=== PATIENT | male | born 1965 | race Caucasian/White ===

== ENCOUNTER 2016-03-01 00:54 | Emergency (ER) | payer MEDICAID ==
[~2016-03-01 00:54] MED LIST: ALBU.5I NEB; ALBU6.7H INH; MOBI15TA PO; PRED20 PO; VENTAER INH
[2016-03-01 00:56] VITALS: BP 147/85; PULSE 108; RESP 20; TEMP 98; O2SAT 97
[2016-03-01] MEDS ORDERED: methylPREDNISolone SOD SUCC 125 MG/2 ML VIAL ONE (02:03)
[2016-03-01] MEDS ORDERED: RESP: ALBUTEROL 2.5 MG/IPRATROPIUM 0.5 MG NEB (PRN) ONE (02:17)
[2016-03-01] MEDS ORDERED: methylPREDNISolone SOD SUCC 125 MG/2 ML VIAL IV ONE (02:45)
[2016-03-01 02:53] LABS: AUTOMATED NEUTROPHIL # 5.4 TH/MM3 (1.8-7.7); BASOPHIL # 0.1 TH/MM3 (0-0.2); BASOPHIL % 0.8 % (0.0-2.0); EOSINOPHIL # 0.3 TH/MM3 (0-0.4); EOSINOPHIL % 3.5 % (0.0-4.0); HEMATOCRIT 40.4 % (39.0-51.0); HEMO FLAGS DIFF FINAL; LYMPH % 29.2 % (9.0-44.0); LYMPHOCYTE # 2.6 TH/MM3 (1.0-4.8); MEAN CELL VOLUME 82.3 FL (80.0-100.0); MEAN CORPUSCULAR HEMOGLOBIN 28.5 PG (27.0-34.0); MEAN CORPUSCULAR HGB CONC 34.6 % (32.0-36.0); MONO % 6.2 % (0.0-8.0); NEUT % 60.3 % (16.0-70.0); PLATELET COUNT 302 TH/MM3 (150-450); RED BLOOD COUNT 4.91 MIL/MM3 (4.50-5.90); RED CELL DISTRIBUTION WIDTH 13.1 % (11.6-17.2); WHITE BLOOD COUNT 8.9 TH/MM3 (4.0-11.0)
[2016-03-01 02:59] LABS: BICARBONATE 28.3 MEQ/L (21.0-32.0); POTASSIUM 3.8 MEQ/L (3.5-5.1)
[2016-03-01] MEDS ORDERED: RESP: ALBUTEROL 2.5 MG/IPRATROPIUM 0.5 MG NEB (SCH) NEB ONE (03:00)
--- NOTE | 2016-03-01 04:00 | PD ---
HPI Chief Complaint: COPD exacerbation Time Seen by Provider: 03:44 Travel History International Travel<30 days: No Contact w/Intl Traveler<30days: No History of Present Illness HPI Patient is a 50-year-old male who presents to emergency room with complaints of COPD exacerbation. Patient reports that he has history of COPD, reports that he does use up-year-old treatments as well as Pro Air puffer, reports that he ran out of these medications 3 days ago. Patient reports that he has been having increased wheezing today, reports a mild nonproductive cough. Reports that he was a past smoker, reports that he currently doesn't smoke. Patient with no fevers or chills. Patient with no chest pain or shortness of breath at this time. Patient requests treatment for COPD at this time and request discharge with albuterol nebulizers, as well as Pro Air puffer. Patient with no recent travels. PFSH Past Medical History COPD: Yes Respiratory: Yes (COPD) Immunizations Current: Yes Family History Family History: Negative Social History Alcohol Use: Yes (RARELY) Tobacco Use: No Substance Use: No Allergies-Medications (Allergen,Severity, Reaction): Coded Allergies: No Known Allergies (Unverified , 01/10/16) Reported Meds & Prescriptions Reported Meds & Active Scripts Active Prednisone 20 Mg Tab 40 Mg PO DAILY 5 Days Albuterol Neb (Albuterol Sulfate) 2.5 Mg/0.5 Ml Neb 2.5 Mg NEB Q6HR NEB PRN Note: The Albuterol Sulfate Inhalation Solution is concentrated and must be diluted. Read complete instructions carefully before using. Mobic (Meloxicam) 15 Mg Tab 15 Mg PO DAILY PRN Reported Ventolin Hfa 18 GM Inh (Albuterol Sulfate) 90 Mcg/Act Aer 2 Puff INH Q4H PRN Proventil Hfa 6.7 GM Inh (Albuterol Sulfate) 90 Mcg/Act Aer 2 Puff INH Q4HR PRN Review of Systems General / Constitutional: No: Fever Eyes: No: Visual changes HENT: No: Headaches Cardiovascular: No: Chest Pain or Discomfort, Palpitations, Irregular Rhythm Respiratory: Positive: Cough, Shortness of Breath, Wheezing Gastrointestinal: No: Abdominal Pain Genitourinary: No: Dysuria Musculoskeletal: No: Pain Skin: No Rash Neurologic: No: Weakness Psychiatric: No: Depression Endocrine: No: Polydipsia Hematologic/Lymphatic: No: Easy Bruising Physical Exam Narrative GENERAL: No acute distress, nontoxic SKIN: Warm and dry. HEAD: Atraumatic. Normocephalic. EYES: Pupils equal and round. No scleral icterus. No injection or drainage. ENT: No nasal bleeding or discharge. Mucous membranes pink and moist. NECK: Trachea midline. No JVD. CARDIOVASCULAR: Regular rate and rhythm. No murmur appreciated. RESPIRATORY: Patient with diffuse wheezing to upper and lower lungs, patient with no accessory muscle use with breathing. Breath sounds equal bilaterally. GASTROINTESTINAL: Abdomen soft, non-tender, nondistended. Hepatic and splenic margins not palpable. MUSCULOSKELETAL: No obvious deformities. No clubbing. No cyanosis. No edema. NEUROLOGICAL: Awake and alert. No obvious cranial nerve deficits. Motor grossly within normal limits. Normal speech. PSYCHIATRIC: Appropriate mood and affect; insight and judgment normal. Data Data Last Documented VS Vital Signs Date Time Temp Pulse Resp B/P Pulse Ox O2 Delivery O2 Flow Rate FiO2 03/01/16 00:56 98.0 108 20 147/85 97 Room Air Orders Methylprednisolone So Succ Inj (Solumedr (03/01/16 02:03) Albuterol-Ipratropium Neb (Duoneb Neb) (03/01/16 02:17) Basic Metabolic Panel (Bmp) (03/01/16 01:30) Complete Blood Count With Diff (03/01/16 01:30) Methylprednisolone So Succ Inj (Solumedr (03/01/16 02:45) Albuterol-Ipratropium Neb (Duoneb Neb) (03/01/16 03:00) Chest, Single Ap (03/01/16 ) Labs Laboratory Tests Test 03/01/16 01:30 White Blood Count 8.9 TH/MM3 Red Blood Count 4.91 MIL/MM3 Hemoglobin 14.0 GM/DL Hematocrit 40.4 % Mean Corpuscular Volume 82.3 FL Mean Corpuscular Hemoglobin 28.5 PG Mean Corpuscular Hemoglobin 34.6 % Concent Red Cell Distribution Width 13.1 % Platelet Count 302 TH/MM3 Mean Platelet Volume 8.8 FL Neutrophils (%) (Auto) 60.3 % Lymphocytes (%) (Auto) 29.2 % Monocytes (%) (Auto) 6.2 % Eosinophils (%) (Auto) 3.5 % Basophils (%) (Auto) 0.8 % Neutrophils # (Auto) 5.4 TH/MM3 Lymphocytes # (Auto) 2.6 TH/MM3 Monocytes # (Auto) 0.6 TH/MM3 Eosinophils # (Auto) 0.3 TH/MM3 Basophils # (Auto) 0.1 TH/MM3 CBC Comment DIFF FINAL Differential Comment Sodium Level 142 MEQ/L Potassium Level 3.8 MEQ/L Chloride Level 105 MEQ/L Carbon Dioxide Level 28.3 MEQ/L Anion Gap 9 MEQ/L Blood Urea Nitrogen 14 MG/DL Creatinine 0.91 MG/DL Estimat Glomerular Filtration 89 ML/MIN Rate Random Glucose 105 MG/DL Calcium Level 8.6 MG/DL MDM Medical Decision Making Medical Screen Exam Complete: Yes Emergency Medical Condition: Yes Interpretation(s) Vital Signs Date Time Temp Pulse Resp B/P Pulse Ox O2 Delivery O2 Flow Rate FiO2 03/01/16 00:56 98.0 108 20 147/85 97 Room Air Laboratory Tests Test 03/01/16 01:30 White Blood Count 8.9 TH/MM3 (4.0-11.0) Red Blood Count 4.91 MIL/MM3 (4.50-5.90) Hemoglobin 14.0 GM/DL (13.0-17.0) Hematocrit 40.4 % (39.0-51.0) Mean Corpuscular Volume 82.3 FL (80.0-100.0) Mean Corpuscular Hemoglobin 28.5 PG (27.0-34.0) Mean Corpuscular Hemoglobin 34.6 % Concent (32.0-36.0) Red Cell Distribution Width 13.1 % (11.6-17.2) Platelet Count 302 TH/MM3 (150-450) Mean Platelet Volume 8.8 FL (7.0-11.0) Neutrophils (%) (Auto) 60.3 % (16.0-70.0) Lymphocytes (%) (Auto) 29.2 % (9.0-44.0) Monocytes (%) (Auto) 6.2 % (0.0-8.0) Eosinophils (%) (Auto) 3.5 % (0.0-4.0) Basophils (%) (Auto) 0.8 % (0.0-2.0) Neutrophils # (Auto) 5.4 TH/MM3 (1.8-7.7) Lymphocytes # (Auto) 2.6 TH/MM3 (1.0-4.8) Monocytes # (Auto) 0.6 TH/MM3 (0-0.9) Eosinophils # (Auto) 0.3 TH/MM3 (0-0.4) Basophils # (Auto) 0.1 TH/MM3 (0-0.2) CBC Comment DIFF FINAL Differential Comment Sodium Level 142 MEQ/L (136-145) Potassium Level 3.8 MEQ/L (3.5-5.1) Chloride Level 105 MEQ/L (98-107) Carbon Dioxide Level 28.3 MEQ/L (21.0-32.0) Anion Gap 9 MEQ/L (5-15) Blood Urea Nitrogen 14 MG/DL (7-18) Creatinine 0.91 MG/DL (0.60-1.30) Estimat Glomerular Filtration 89 ML/MIN (>89) Rate Random Glucose 105 MG/DL (74-106) Calcium Level 8.6 MG/DL (8.5-10.1) Differential Diagnosis Pneumonia, COPD exacerbation, electrolyte abnormality Narrative Course Patient is a 50-year-old male who presents to emergency room with complaints of COPD exacerbation. Patient had recently ran out of his albuterol nebulizers as well as proair rescue inhaler. Patient here as he has been having increased wheezing and shortness of breath since this afternoon. Patient with mild productive cough, no chest pain at this time. Patient no fevers or chills. On clinical exam, patient was wheezing. Patient was given IV Solu-Medrol 125 mg as well as 3 duo nebs. Patient had relief of symptoms with decreased wheezing after nebulized treatments. Patient was discharged home with scripts for pro-air rescue inhaler, albuterol nebulizer as well as prednisone 20 mg 1 tab by mouth twice a day 5 days. Patient was instructed to follow-up with his primary care doctor in 1-2 days. Signs and symptoms of when to return to the emergency room was reviewed with patient in detail. Labs and studies were ordered through down time sheets, please refer to these records for full medical workup of pt Diagnosis Primary Impression: COPD exacerbation Additional Instructions: Please follow-up with your primary care doctor in 1-2 days Return to ER as needed Med/Other Pt SpecificInfo: Prescription(s) given Disposition: 01 DISCHARGE HOME Condition: Stable Jahaira Pardo DO Mar 01, 2016 04:00
--- NOTE | 2016-03-01 08:56 | RADRPT ---
EXAM DATE/TIME: 03/01/2016 02:11 [facility] COMPARISON: CHEST SINGLE AP, October 23, 2015, 3:20. INDICATIONS : Shortness of breath. MEDICAL HISTORY : Chronic obstructive pulmonary disease. SURGICAL HISTORY : None. ENCOUNTER: Initial ACUITY: 1 day PAIN SCORE: 2/10 LOCATION: Bilateral chest FINDINGS: A single view of the chest demonstrates the lungs to be symmetrically aerated without evidence of mas s, infiltrate or effusion. The cardiomediastinal contours are unremarkable. Osseous structures are intact. CONCLUSION: The lungs are clear. Jairon Taylor MD on March 01, 2016 at 2:30 Board Certified Radiologist. This report was verified electronically.
== END 2016-03-01 03:30 | disposition home or self-care (01) ==
LOC: NEPE 00:54
DX: J44.1 Chronic obstructive pulmonary disease with (acute) exacerbation (principal); Z87.891 Personal history of nicotine dependence
CPT/HCPCS: 71010; 80048; 85025; 94640; 94664; 99284; J2930

== ENCOUNTER 2016-03-20 23:28 | Emergency (ER) | payer MEDICAID ==
[~2016-03-20] VITALS: Ht 162.6 cm; Wt 110.0 kg
[2016-03-20 23:29] VITALS: BP 155/108; PULSE 108; RESP 28; TEMP 98.3; O2SAT 93
[2016-03-20 23:34] VITALS: BP 154/88; PULSE 109; RESP 22; TEMP 98.3; O2SAT 93
[2016-03-20 23:41] VITALS: RESP 24; O2SAT 93
[2016-03-20] MEDS ORDERED: ALBU.5I NEB (23:44)
[2016-03-20] MEDS ORDERED: PRED-503 PO (23:44)
[2016-03-20] MEDS ORDERED: AZIT250T3 PO (23:44)
[2016-03-20] MEDS ORDERED: VENTAER INH (23:44)
[2016-03-20] MEDS ORDERED: FLUTI220I INH (23:44)
[2016-03-20] MEDS ORDERED: AZITHROMYCIN 250 MG TAB PO ONE (23:45)
[2016-03-20] MEDS ORDERED: methylPREDNISolone SOD SUCC 125 MG/2 ML VIAL IVP ONE (23:45)
[2016-03-20] MEDS ORDERED: SODIUM CHLORIDE 0.9% FLUSH 5 ML FLUSH IVF PRN (23:45)
--- NOTE | 2016-03-20 23:45 | PD ---
HPI Chief Complaint: Respiratory Symptoms Time Seen by Provider: 23:33 Travel History International Travel<30 days: No Contact w/Intl Traveler<30days: No Traveled to known affect area: No History of Present Illness HPI 42-year-old man, history of COPD with multiple exacerbations in ED visits presents with cough cold symptoms, some minimal fevers chills, shortness of breath, ongoing for the past for 5 days, worse tonight. He doesn't smoke. He does not have a primary physician. Uses albuterol as needed but no other medications. No other complaints. History Past Medical History Narrative Medical COPD Past Surgical History Surgical History: No Previous Surgery Social History Alcohol Use: Yes (RARELY) Tobacco Use: No (quit 2009) Allergies-Medications (Allergen,Severity, Reaction): Coded Allergies: No Known Allergies (Unverified , 01/10/16) Reported Meds & Prescriptions Reported Meds & Active Scripts Active Flovent Hfa 12 GM Inh (Fluticasone Propionate) 220 Mcg/Act Inh 2 Puff INH BID Use daily at the same time. Azithromycin 250 Mg Tab 250 Mg PO DAILY 4 Days Deltasone (Prednisone) 20 Mg Tab 40 Mg PO DAILY 10 Days Albuterol Neb (Albuterol Sulfate) 2.5 Mg/0.5 Ml Neb 2.5 Mg NEB Q6HR NEB PRN Note: The Albuterol Sulfate Inhalation Solution is concentrated and must be diluted. Read complete instructions carefully before using. Ventolin Hfa 18 GM Inh (Albuterol Sulfate) 90 Mcg/Act Aer 2 Puff INH Q4H PRN Review of Systems Except as stated in HPI: all other systems reviewed are Neg Physical Exam Narrative GENERAL: Well-appearing 50-year-old man, mild to moderate respiratory distress. SKIN: Warm and dry. HEAD: Atraumatic. Normocephalic. EYES: Pupils equal and round. No scleral icterus. No injection or drainage. ENT: No nasal bleeding or discharge. Mucous membranes pink and moist. NECK: Trachea midline. No JVD. CARDIOVASCULAR: Regular rate and rhythm. No murmur appreciated. RESPIRATORY: Mild to moderate respiratory distress with increased muscle use, speaking in short sentences, diffuse wheezing with good air movement. GASTROINTESTINAL: Abdomen soft, non-tender, nondistended. Hepatic and splenic margins not palpable. MUSCULOSKELETAL: No obvious deformities. No edema. NEUROLOGICAL: Awake and alert. No obvious cranial nerve deficits. Motor grossly within normal limits. Normal speech. PSYCHIATRIC: Appropriate mood and affect; insight and judgment normal. Data Data Last Documented VS Vital Signs Date Time Temp Pulse Resp B/P Pulse Ox O2 Delivery O2 Flow Rate FiO2 03/20/16 23:44 96 Nasal Cannula 2 03/20/16 23:41 24 03/20/16 23:34 98.3 109 154/88 Orders Iv Access Insert/Monitor (03/20/16 23:37) Electrocardiogram (03/20/16 23:37) Ecg Monitoring (03/20/16 23:37) Oximetry (03/20/16 23:37) Oxygen Administration (03/20/16 23:37) Chest, Single Ap (03/20/16 23:37) Sodium Chloride 0.9% Flush (Ns Flush) (03/20/16 23:45) Methylprednisolone So Succ Inj (Solumedr (03/20/16 23:45) Albuterol-Ipratropium Neb (Duoneb Neb) (03/20/16 23:45) Azithromycin (Zithromax) (03/20/16 23:45) MDM Medical Decision Making Medical Screen Exam Complete: Yes Emergency Medical Condition: Yes Interpretation(s) My review of EKG: Normal sinus rhythm at a rate of 99, normal axis, normal intervals, no acute ischemia. Chest x-ray: Negative. Differential Diagnosis COPD exacerbation, pneumonia, heart failure, ACS, URI, influenza, other Narrative Course Medical decision making 42-year-old male with a history of COPD, uncontrolled without a primary care physician not on any controller medications with monthly ED visits presents to the emergency department with the same. No significant fevers to suggest influenza or pneumonia. He looks otherwise well. We'll give bronchodilators, steroids, will give a prescription for Flovent for controller medication to start, recommend follow-up with a primary physician. 1:15 AM: Patient much improved. Stable for discharge. Diagnosis Primary Impression: COPD exacerbation Additional Instructions: Take prednisone as prescribed. Continue albuterol every 4-6 hours until symptoms resolve. Take azithromycin as prescribed. Once you finished prednisone, take Flovent twice daily with your feeling better not to prevent further exacerbations. Follow-up with a primary physician for further management of your COPD. Return to the emergency department for any worsening shortness of breath. Med/Other Pt SpecificInfo: Prescription(s) given Scripts Fluticasone 12 GM Inh (Flovent Hfa 12 GM Inh)220 Mcg/Act Inh2 Puff INH BID #1 INHALER Ref 0 Use daily at the same time. Prov:Alexander Mendoza MD 03/20/16 Azithromycin 250 Mg Hyi672 Mg PO DAILY 4 Days Prov:Alexander Mendoza MD 03/20/16 Prednisone (Deltasone)20 Mg Tab40 Mg PO DAILY 10 Days Prov:Alexander Mendoza MD 03/20/16 Albuterol Neb 2.5 Mg/0.5 Ml Neb2.5 Mg NEB Q6HR NEB PRN (WHEEZING) #30 BOX Note: The Albuterol Sulfate Inhalation Solution is concentrated and must be diluted. Read complete instructions carefully before using. Prov:Alexander Mendoza MD 03/20/16 Albuterol 18 GM Inh (Ventolin Hfa 18 GM Inh)90 Mcg/Act Aer2 Puff INH Q4H PRN ( SHORTNESS OF BREATH) #1 INHALER Ref 0 Prov:Alexander Mendoza MD 03/20/16 Disposition: 01 DISCHARGE HOME Condition: Stable Alexander Mendoza MD Mar 20, 2016 23:45
[2016-03-20] MEDS: RESP: ALBUTEROL 2.5 MG/IPRATROPIUM 0.5 MG NEB (SCH) INH ×2 (23:52→23:53)
--- NOTE | 2016-03-21 | RADRPT ---
EXAM DATE/TIME: 03/20/2016 23:51 [facility] COMPARISON: CHEST SINGLE AP, March 01, 2016, 2:11. INDICATIONS : Shortness of breath. MEDICAL HISTORY : None. SURGICAL HISTORY : None. ENCOUNTER: Initial ACUITY: 1 day PAIN SCORE: 0/10 LOCATION: Bilateral chest FINDINGS: A single view of the chest demonstrates the lungs to be symmetrically aerated without evidence of mas s, infiltrate or effusion. The cardiomediastinal contours are unremarkable. Osseous structures are intact. CONCLUSION: Normal examination. Emir Ardon MD on March 20, 2016 at 23:58 Board Certified Radiologist. This report was verified electronically.
--- NOTE | 2016-03-21 12:19 | EKG ---
Date Performed: 03/20/2016 Time Performed: 23:45:23 PTAGE: 50 years EKG: Sinus rhythm NORMAL ECG PREVIOUS TRACING : 10/23/2015 03.06 Compared to prior tracing no significant change DOCTOR: Antony Dhillon Interpretating Date/Time 03/21/2016 12:18:14
== END 2016-03-21 02:18 | disposition home or self-care (01) ==
LOC: NEPE 23:28
DX: J44.1 Chronic obstructive pulmonary disease with (acute) exacerbation (principal); R50.9 Fever, unspecified; R06.00 Dyspnea, unspecified; Z87.09 Personal history of other diseases of the respiratory system; Z87.891 Personal history of nicotine dependence
CPT/HCPCS: 71010; 93005; 94640; 94664; 96374; 99283; J2930

== ENCOUNTER 2016-06-26 00:10 | Emergency (ER) | payer MEDICAID, OTHER ==
[~2016-06-26] VITALS: Ht 165.1 cm; Wt 110.0 kg
[~2016-06-26 00:10] MED LIST changes: -ALBU6.7H INH; +AZIT250T3 PO; +FLUTI220I INH; -MOBI15TA PO; +PRED-503 PO; -PRED20 PO
[2016-06-26 00:20] VITALS: BP 135/79; PULSE 102; RESP 22; TEMP 98; O2SAT 94
[2016-06-26] MEDS: RESP: ALBUTEROL 2.5 MG/IPRATROPIUM 0.5 MG NEB (SCH) INH (00:41)
--- NOTE | 2016-06-26 00:43 | PD ---
HPI Chief Complaint: Respiratory Symptoms Time Seen by Provider: 00:31 Travel History International Travel<30 days: No Contact w/Intl Traveler<30days: No Traveled to known affect area: No History of Present Illness HPI 51-year-old male with history of COPD here for evaluation of shortness of breath /COPD exacerbation. Patient reports that the symptoms started earlier yesterday morning. He states he is out of his inhalers. He smokes occasionally. He is coughing up whitish sputum. Denies fevers. No hemoptysis. No chest pain. PFSH Past Medical History COPD: Yes Diminished Hearing: No Respiratory: Yes Immunizations Current: Yes Social History Alcohol Use: Yes (RARELY) Tobacco Use: Yes Substance Use: No Allergies-Medications (Allergen,Severity, Reaction): Coded Allergies: No Known Allergies (Unverified , 01/10/16) Reported Meds & Prescriptions Reported Meds & Active Scripts Active Flovent Hfa 12 GM Inh (Fluticasone Propionate) 220 Mcg/Act Inh 2 Puff INH BID Use daily at the same time. Albuterol Neb (Albuterol Sulfate) 2.5 Mg/0.5 Ml Neb 2.5 Mg NEB Q6HR NEB PRN Note: The Albuterol Sulfate Inhalation Solution is concentrated and must be diluted. Read complete instructions carefully before using. Ventolin Hfa 18 GM Inh (Albuterol Sulfate) 90 Mcg/Act Aer 2 Puff INH Q4H PRN Review of Systems Except as stated in HPI: all other systems reviewed are Neg Physical Exam Narrative GENERAL: Well-developed, well-nourished, pleasant, no acute distress. SKIN: Focused skin assessment warm/dry. HEAD: Atraumatic. Normocephalic. EYES: Pupils equal and round. No scleral icterus. No injection or drainage. ENT: Mucous membranes pink and moist. NECK: Trachea midline. No JVD. CARDIOVASCULAR: Regular rate and rhythm. RESPIRATORY: No accessory muscle use. Bilateral inspiratory and expiratory wheezes. Breath sounds equal bilaterally. Speaking full sentences. GASTROINTESTINAL: Abdomen soft, non-tender, nondistended. MUSCULOSKELETAL: No obvious deformities. No clubbing. No cyanosis. No edema. NEUROLOGICAL: Awake and alert. No obvious cranial nerve deficits. Motor grossly within normal limits. Normal speech. PSYCHIATRIC: Appropriate mood and affect; insight and judgment normal. Data Data Last Documented VS Vital Signs Date Time Temp Pulse Resp B/P Pulse Ox O2 Delivery O2 Flow Rate FiO2 06/26/16 00:20 98.0 102 22 135/79 94 Room Air Orders Albuterol-Ipratropium Neb (Duoneb Neb) (06/26/16 00:45) Prednisone (Deltasone) (06/26/16 00:45) MDM Medical Decision Making Medical Screen Exam Complete: Yes Emergency Medical Condition: Yes Medical Record Reviewed: Yes Differential Diagnosis COPD exacerbation, bronchitis, pneumothorax, ACS, PE Narrative Course Patient was given 3 DuoNeb treatments and oral prednisone and on reassessment he is feeling much better. Wheezing has completely resolved. He is in no respiratory distress. He is out of all of his albuterol treatments at home including his nebulized treatment as well as inhaler. I will discharge him home with a prescription for both of these as well as a prescription for prednisone. PMD follow-up this week. He was informed on when to return to the emergency department. He verbalizes understanding and agreement with plan. Diagnosis Primary Impression: COPD exacerbation Referrals: [facility] 3 days Primary Care Physician 3 days Additional Instructions: Follow-up with a primary care physician this week. Return to the emergency department for worsening symptoms or any other concerns. Scripts Prednisone 50 Mg Tab50 Mg PO DAILY 5 Days Ref 0 Prov:Jerome Saldaña MD 06/26/16 Albuterol Neb 0.63 Mg/3 Ml Neb0.63 Mg NEB Q6HR NEB PRN (SHORTNESS OF BREATH) # 25 NEBULE Ref 0 Prov:Jerome Saldaña MD 06/26/16 Albuterol 18 GM Inh (Ventolin Hfa 18 GM Inh)90 Mcg/Act Aer2 Puff INH Q4-6H PRN ( SHORTNESS OF BREATH) #1 INHALER Ref 0 Prov:Jerome Saldaña MD 06/26/16 Disposition: 01 DISCHARGE HOME Condition: Stable Jerome Saldaña MD June 26, 2016 00:42
[2016-06-26] MEDS ORDERED: predniSONE 50 MG TAB PO ONE (00:45)
[2016-06-26] MEDS ORDERED: PRED50 PO (01:56)
[2016-06-26] MEDS ORDERED: VENTAER INH (01:56)
[2016-06-26] MEDS ORDERED: ALBU0.63 NEB (01:56)
[2016-06-26] MEDS ORDERED: ALBUTEROL SULFATE 90 MCG/ACT HFA 18 GM INHALER INH ONE (02:00)
[2016-06-26] MEDS ORDERED: ALBUTEROL SULFATE 90 MCG/ACT HFA 8 GM INHALER INH ONE (02:00)
== END 2016-06-26 02:37 | disposition home or self-care (01) ==
LOC: NEPE 00:10
DX: J44.1 Chronic obstructive pulmonary disease with (acute) exacerbation (principal); F17.210 Nicotine dependence, cigarettes, uncomplicated
CPT/HCPCS: 94640; 94664; 99283; J7512

== ENCOUNTER 2016-09-13 09:16 | Emergency (ER) | payer SELFPAY ==
[~2016-09-13] VITALS: Ht 162.6 cm; Wt 81.0 kg
[~2016-09-13 09:16] MED LIST changes: +ALBU0.63 NEB; -AZIT250T3 PO; -PRED-503 PO; +PRED50 PO
[2016-09-13 09:20] VITALS: BP 146/78; PULSE 113; RESP 28; TEMP 97.6; O2SAT 93
[2016-09-13 09:24] VITALS: O2SAT 97
[2016-09-13 09:34] VITALS: BP 155/76; PULSE 103; RESP 30; O2SAT 97
--- NOTE | 2016-09-13 09:57 | PD ---
HPI Chief Complaint: Respiratory Distress Time Seen by Provider: 09:42 Travel History International Travel<30 days: No Contact w/Intl Traveler<30days: No Traveled to known affect area: No History of Present Illness HPI This patient complains of shortness of breath. Symptoms severity is moderate. He has long-standing history of COPD. Uses nebulizers at home. He quit smoking months ago. Symptoms partially alleviated by nebulizer use. He has a chronic dry cough. No chest pain. Duration is 2 days. PFSH Past Medical History COPD: Yes Diminished Hearing: No Respiratory: Yes (copd) Immunizations Current: Yes Social History Alcohol Use: Yes (RARELY) Tobacco Use: No Substance Use: No Allergies-Medications (Allergen,Severity, Reaction): Coded Allergies: No Known Allergies (Unverified , 01/10/16) Reported Meds & Prescriptions Reported Meds & Active Scripts Active Albuterol Neb (Albuterol Sulfate) 0.63 Mg/3 Ml Neb 0.63 Mg NEB Q6HR NEB PRN Ventolin Hfa 18 GM Inh (Albuterol Sulfate) 90 Mcg/Act Aer 2 Puff INH Q4-6H PRN Flovent Hfa 12 GM Inh (Fluticasone Propionate) 220 Mcg/Act Inh 2 Puff INH BID Use daily at the same time. Albuterol Neb (Albuterol Sulfate) 2.5 Mg/0.5 Ml Neb 2.5 Mg NEB Q6HR NEB PRN Note: The Albuterol Sulfate Inhalation Solution is concentrated and must be diluted. Read complete instructions carefully before using. Ventolin Hfa 18 GM Inh (Albuterol Sulfate) 90 Mcg/Act Aer 2 Puff INH Q4H PRN Review of Systems General / Constitutional: No: Fever Eyes: No: Visual changes HENT: No: Headaches Cardiovascular: No: Chest Pain or Discomfort Respiratory: Positive: Cough, Shortness of Breath, Wheezing Gastrointestinal: No: Abdominal Pain Genitourinary: No: Dysuria Musculoskeletal: No: Pain Skin: No Rash Neurologic: No: Weakness Psychiatric: No: Depression Endocrine: No: Polydipsia Hematologic/Lymphatic: No: Easy Bruising Physical Exam Narrative GENERAL: Well-nourished, well-developed patient who is short of breath SKIN: Focused skin assessment reveals no rash and nodules. Skin is Warm and dry. HEAD: Atraumatic. Normocephalic. EYES: Pupils equal and round. No scleral icterus. No injection or drainage. ENT: No nasal bleeding or discharge. Mucous membranes pink and moist. NECK: Trachea midline. No JVD. CARDIOVASCULAR: Regular rate and rhythm. No murmur appreciated. RESPIRATORY: Positive accessory muscle use. Diffuse expiratory wheezing with rhonchi. Breath sounds equal bilaterally. GASTROINTESTINAL: Abdomen soft, non-tender, nondistended. Hepatic and splenic margins not palpable. MUSCULOSKELETAL: No obvious deformities. No clubbing. No cyanosis. No edema. NEUROLOGICAL: Awake and alert. No obvious cranial nerve deficits. Motor grossly within normal limits. Normal speech. PSYCHIATRIC: Appropriate mood and affect; insight and judgment normal. Data Data Last Documented VS Vital Signs Date Time Temp Pulse Resp B/P Pulse Ox O2 Delivery O2 Flow Rate FiO2 09/13/16 10:07 97 Nasal Cannula 3.00 09/13/16 09:34 103 30 155/76 09/13/16 09:20 97.6 Orders Complete Blood Count With Diff (09/13/16 09:50) Basic Metabolic Panel (Bmp) (09/13/16 09:50) Iv Access Insert/Monitor (09/13/16 09:50) Ecg Monitoring (09/13/16 09:50) Oximetry (09/13/16 09:50) Oxygen Administration (09/13/16 09:50) Chest, Single Ap (09/13/16 09:50) Sodium Chloride 0.9% Flush (Ns Flush) (09/13/16 10:00) Methylprednisolone So Succ Inj (Solumedr (09/13/16 10:00) Albuterol-Ipratropium Neb (Duoneb Neb) (09/13/16 10:00) Labs Laboratory Tests Test 09/13/16 09:50 White Blood Count 8.2 TH/MM3 Red Blood Count 4.88 MIL/MM3 Hemoglobin 13.9 GM/DL Hematocrit 41.4 % Mean Corpuscular Volume 84.8 FL Mean Corpuscular Hemoglobin 28.5 PG Mean Corpuscular Hemoglobin 33.6 % Concent Red Cell Distribution Width 13.3 % Platelet Count 269 TH/MM3 Mean Platelet Volume 8.6 FL Neutrophils (%) (Auto) 57.5 % Lymphocytes (%) (Auto) 27.8 % Monocytes (%) (Auto) 7.4 % Eosinophils (%) (Auto) 6.5 % Basophils (%) (Auto) 0.8 % Neutrophils # (Auto) 4.7 TH/MM3 Lymphocytes # (Auto) 2.3 TH/MM3 Monocytes # (Auto) 0.6 TH/MM3 Eosinophils # (Auto) 0.5 TH/MM3 Basophils # (Auto) 0.1 TH/MM3 CBC Comment DIFF FINAL Differential Comment Sodium Level 140 MEQ/L Potassium Level 4.0 MEQ/L Chloride Level 105 MEQ/L Carbon Dioxide Level 27.8 MEQ/L Anion Gap 7 MEQ/L Blood Urea Nitrogen 15 MG/DL Creatinine 0.93 MG/DL Estimat Glomerular Filtration 86 ML/MIN Rate Random Glucose 108 MG/DL Calcium Level 9.0 MG/DL MDM Medical Decision Making Medical Screen Exam Complete: Yes Emergency Medical Condition: Yes Medical Record Reviewed: Yes Differential Diagnosis Differential diagnosis includes COPD, asthma, pneumonia, bronchitis, CHF Narrative Course I have reviewed the patient's electronic medical record. Patient is a frequent visitor for COPD IV placed CBC is normal Metabolic profile is normal I reviewed his chest x-ray is normal I gave him a series of nebulizer treatments I gave him IV Solu-Medrol On recheck he is improved. Stable for outpatient follow-up. I wrote him 6 days of prednisone as well as a albuterol and Atrovent inhaler Diagnosis Primary Impression: COPD exacerbation Additional Instructions: The patient was advised to follow up with their physician and return if they worsen. Med/Other Pt SpecificInfo: Prescription(s) given Scripts Prednisone 20 Mg Tab20 Mg PO DAILY #6 TAB Ref 0 Prov:Chau Shaw MD 09/13/16 Disposition: 01 DISCHARGE HOME Condition: Stable Chau Shaw MD Sep 13, 2016 09:57
[2016-09-13] MEDS ORDERED: methylPREDNISolone SOD SUCC 125 MG/2 ML VIAL IVP ONE (10:00)
[2016-09-13] MEDS ORDERED: SODIUM CHLORIDE 0.9% FLUSH 10 ML FLUSH IVF PRN (10:00)
[2016-09-13] MEDS: RESP: ALBUTEROL 2.5 MG/IPRATROPIUM 0.5 MG NEB (SCH) INH (10:05)
[2016-09-13 10:07] VITALS: O2SAT 97
[2016-09-13 10:11] LABS: AUTOMATED NEUTROPHIL # 4.7 TH/MM3 (1.8-7.7); BASOPHIL # 0.1 TH/MM3 (0-0.2); BASOPHIL % 0.8 % (0.0-2.0); EOSINOPHIL # 0.5 TH/MM3 (0-0.4); EOSINOPHIL % 6.5 % (0.0-4.0); HEMATOCRIT 41.4 % (39.0-51.0); HEMO FLAGS DIFF FINAL; LYMPH % 27.8 % (9.0-44.0); LYMPHOCYTE # 2.3 TH/MM3 (1.0-4.8); MEAN CELL VOLUME 84.8 FL (80.0-100.0); MEAN CORPUSCULAR HEMOGLOBIN 28.5 PG (27.0-34.0); MEAN CORPUSCULAR HGB CONC 33.6 % (32.0-36.0); MONO % 7.4 % (0.0-8.0); NEUT % 57.5 % (16.0-70.0); PLATELET COUNT 269 TH/MM3 (150-450); RED BLOOD COUNT 4.88 MIL/MM3 (4.50-5.90); RED CELL DISTRIBUTION WIDTH 13.3 % (11.6-17.2); WHITE BLOOD COUNT 8.2 TH/MM3 (4.0-11.0)
--- NOTE | 2016-09-13 10:17 | RADRPT ---
EXAM DATE/TIME: 09/13/2016 09:52 [facility] COMPARISON: CHEST SINGLE AP, March 20, 2016, 23:51. INDICATIONS : Shortness of breath. MEDICAL HISTORY : Chronic obstructive pulmonary disease. SURGICAL HISTORY : None. ENCOUNTER: Initial ACUITY: 1 week PAIN SCORE: 0/10 LOCATION: Bilateral chest FINDINGS: The lungs are clear without infiltrate, nodule, or mass. There is no appreciable pleural effusion fo r technique. Heart and mediastinum are unremarkable. CONCLUSION: No acute cardiopulmonary disease. Abiel Sullivan MD on September 13, 2016 at 10:15 Board Certified Radiologist. This report was verified electronically.
[2016-09-13 10:32] LABS: BICARBONATE 27.8 MEQ/L (21.0-32.0)
[2016-09-13] MEDS ORDERED: PRED20 PO (11:46)
[2016-09-13] MEDS ORDERED: IPRA17I INH (11:49)
[2016-09-13] MEDS ORDERED: VENTAER INH (11:49)
[2016-09-13] MEDS ORDERED: ALBU.5I NEB (13:13)
[2016-09-13 13:19] VITALS: BP 131/76
== END 2016-09-13 13:20 | disposition home or self-care (01) ==
LOC: NEPC 09:16
DX: J44.1 Chronic obstructive pulmonary disease with (acute) exacerbation (principal); Z87.891 Personal history of nicotine dependence; Z79.51 Long term (current) use of inhaled steroids; Z79.899 Other long term (current) drug therapy
CPT/HCPCS: 71010; 80048; 85025; 94640; 94664; 96374; 99284; J2930

== ENCOUNTER 2016-10-21 11:41 | Inpatient (IN) | payer MEDICAID ==
[~2016-10-21] VITALS: Ht 167.6 cm; Wt 94.2 kg
[~2016-10-21 11:41] MED LIST changes: +IPRA17I INH; +PRED20 PO; -PRED50 PO
[2016-10-21 11:43] VITALS: BP 148/91; PULSE 115; RESP 32; TEMP 98.9; O2SAT 86
[2016-10-21] MEDS ORDERED: RESP: ALBUTEROL 2.5 MG/IPRATROPIUM 0.5 MG NEB (SCH) ONE (11:51)
[2016-10-21 11:54] VITALS: O2SAT 99
[2016-10-21 11:56] VITALS: O2SAT 97
[2016-10-21] MEDS: RESP: ALBUTEROL 2.5 MG/IPRATROPIUM 0.5 MG NEB (SCH) INH ×4 (11:56→23:45)
[2016-10-21] MEDS ORDERED: SODIUM CHLORIDE 0.9% FLUSH 10 ML FLUSH IVF PRN (12:00)
[2016-10-21] MEDS ORDERED: methylPREDNISolone SOD SUCC 125 MG/2 ML VIAL IVP ONE (12:00)
--- NOTE | 2016-10-21 12:01 | PD ---
HPI Chief Complaint: Respiratory Distress Time Seen by Provider: 11:47 Travel History International Travel<30 days: No Contact w/Intl Traveler<30days: No Traveled to known affect area: No History of Present Illness HPI 51-year-old male presents to the emergency department for evaluation of shortness of breath that started this morning. Patient reports history of COPD and uses a nebulizer and inhaler at home. He ran out last night. Patient denies any fevers or chills. He does report a cough. He denies any chest pain. No abdominal pain. No nausea, vomiting, diarrhea. He does report history of pneumonia in the past. He denies currently smoking. No illicit drug use or alcohol use. He denies any recent surgery or travel. No leg edema. He denies any cardiac history or history of CHF. No history of cancer or DVT/PE. His fianc is at bedside. PFSH Past Medical History COPD: Yes Diminished Hearing: No Respiratory: Yes Immunizations Current: Yes Social History Alcohol Use: Yes (RARELY) Tobacco Use: No Substance Use: No Allergies-Medications (Allergen,Severity, Reaction): Coded Allergies: No Known Allergies (Unverified , 01/10/16) Reported Meds & Prescriptions Reported Meds & Active Scripts Active Albuterol Neb (Albuterol Sulfate) 2.5 Mg/0.5 Ml Neb 2.5 Mg NEB Q6HR NEB PRN Note: The Albuterol Sulfate Inhalation Solution is concentrated and must be diluted. Read complete instructions carefully before using. Atrovent HFA 12.9 GM Inh (Ipratropium [place]) 17 Mcg/Act Aer 2 Puff INH TID Ventolin Hfa 18 GM Inh (Albuterol Sulfate) 90 Mcg/Act Aer 2 Puff INH Q4H PRN Albuterol Neb (Albuterol Sulfate) 0.63 Mg/3 Ml Neb 0.63 Mg NEB Q6HR NEB PRN Ventolin Hfa 18 GM Inh (Albuterol Sulfate) 90 Mcg/Act Aer 2 Puff INH Q4-6H PRN Flovent Hfa 12 GM Inh (Fluticasone Propionate) 220 Mcg/Act Inh 2 Puff INH BID Use daily at the same time. Review of Systems Except as stated in HPI: all other systems reviewed are Neg Physical Exam Narrative GENERAL: Well-nourished, well-developed male patient, afebrile. SKIN: Focused skin assessment warm/dry. HEAD: Normocephalic. Atraumatic. EYES: No scleral icterus. No injection or drainage. NECK: Supple, trachea midline. No JVD or lymphadenopathy. CARDIOVASCULAR: Regular rhythm without murmurs, gallops, or rubs. Patient is tachycardic with a heart rate in the 120s RESPIRATORY: Breath sounds equal bilaterally. Patient is using accessory muscles. Expiratory and expiratory wheezes noted throughout. GASTROINTESTINAL: Abdomen soft, non-tender, nondistended. MUSCULOSKELETAL: No cyanosis, or edema. BACK: Nontender without obvious deformity. No CVA tenderness. Data Data Last Documented VS Vital Signs Date Time Temp Pulse Resp B/P (MAP) Pulse Ox O2 Delivery O2 Flow Rate FiO2 10/21/16 11:56 97 Nasal Cannula 3.00 10/21/16 11:54 10/21/16 11:43 98.9 115 32 Orders Orders Complete Blood Count With Diff (10/21/16 11:50) Basic Metabolic Panel (Bmp) (10/21/16 11:50) D-Dimer (10/21/16 11:50) Act Partial Throm Time (Ptt) (10/21/16 11:50) Prothrombin Time / Inr (Pt) (10/21/16 11:50) Magnesium (Mg) (10/21/16 11:50) Ckmb (Isoenzyme) Profile (10/21/16 11:50) Troponin I (10/21/16 11:50) Iv Access Insert/Monitor (10/21/16 11:50) Electrocardiogram (10/21/16 11:50) Ecg Monitoring (10/21/16 11:50) Oximetry (10/21/16 11:50) Oxygen Administration (10/21/16 11:50) Chest, Single Ap (10/21/16 11:50) Sodium Chloride 0.9% Flush (Ns Flush) (10/21/16 12:00) Methylprednisolone So Succ Inj (Solumedr (10/21/16 12:00) Albuterol-Ipratropium Neb (Duoneb Neb) (10/21/16 12:00) Albuterol-Ipratropium Neb (Duoneb Neb) (10/21/16 11:51) Blood Culture (10/21/16 13:03) Azithromycin Inj (Zithromax Inj) (10/21/16 13:15) Labs Laboratory Tests Test 10/21/16 11:58 White Blood Count 9.8 TH/MM3 Red Blood Count 5.32 MIL/MM3 Hemoglobin 14.3 GM/DL Hematocrit 45.2 % Mean Corpuscular Volume 84.8 FL Mean Corpuscular Hemoglobin 26.8 PG Mean Corpuscular Hemoglobin Concent 31.6 % Red Cell Distribution Width 13.4 % Platelet Count 327 TH/MM3 Mean Platelet Volume 8.8 FL Neutrophils (%) (Auto) 70.7 % Lymphocytes (%) (Auto) 16.8 % Monocytes (%) (Auto) 4.4 % Eosinophils (%) (Auto) 7.5 % Basophils (%) (Auto) 0.6 % Neutrophils # (Auto) 6.9 TH/MM3 Lymphocytes # (Auto) 1.6 TH/MM3 Monocytes # (Auto) 0.4 TH/MM3 Eosinophils # (Auto) 0.7 TH/MM3 Basophils # (Auto) 0.1 TH/MM3 CBC Comment DIFF FINAL Differential Comment Prothrombin Time 10.1 SEC Prothromb Time International Ratio 0.9 RATIO Activated Partial Thromboplast Time 26.1 SEC D-Dimer Quantitative (PE/DVT) 0.35 MG/L FEU Blood Urea Nitrogen 11 MG/DL Creatinine 0.79 MG/DL Random Glucose 120 MG/DL Calcium Level 8.9 MG/DL Magnesium Level 2.4 MG/DL Sodium Level 142 MEQ/L Potassium Level 3.9 MEQ/L Chloride Level 108 MEQ/L Carbon Dioxide Level 27.3 MEQ/L Anion Gap 7 MEQ/L Estimat Glomerular Filtration Rate 104 ML/MIN Total Creatine Kinase 84 U/L Troponin I LESS THAN 0.02 NG/ML [facility] Medical Decision Making Medical Screen Exam Complete: Yes Emergency Medical Condition: Yes Medical Record Reviewed: Yes Interpretation(s) chest x-ray - CONCLUSION: No acute disease. Differential Diagnosis COPD exacerbation versus pneumonia versus pneumothorax versus PE Narrative Course 51 year old male presents to the emergency department with history of COPD for worsening shortness of breath that started this morning. Otherwise, patient is tachypneic with respiratory rate 32, hypoxic with O2 sat 86%. He is visibly short of breath on exam. Respiratory is immediately called to give DuoNeb 3. EKG, CBC, BMP, magnesium, CK, troponin, PTT, PT/INR, d-dimer are ordered and pending. Chest x-ray is ordered and pending. Patient is given Solu-Medrol 125 mg IV. EKG shows sinus tachycardia, heart rate 101, no acute ST changes. CBC shows no acute abnormality. BMP shows no acute abnormality. CK is 84. Troponin is less than 0.02. Magnesium is 2.4. Coags are unremarkable. D-dimer is 0.35. Chest x-ray shows no acute disease. On Reexamination, patient still mildly short of breath. He still has expiratory and expiratory wheezes noted throughout. However, he states that he is feeling much better. His oxygen saturations 97% on 3 L O2 nasal cannula. I discussed admission with the patient who agrees. Residents accepted admission. Diagnosis Primary Impression: COPD exacerbation Additional Impression: Hypoxia Admitting Information Admitting Physician Requests: Madeleine Smith Oct 21, 2016 12:01
[2016-10-21 12:15] LABS: AUTOMATED NEUTROPHIL # 6.9 TH/MM3 (1.8-7.7); BASOPHIL # 0.1 TH/MM3 (0-0.2); BASOPHIL % 0.6 % (0.0-2.0); EOSINOPHIL # 0.7 TH/MM3 (0-0.4); EOSINOPHIL % 7.5 % (0.0-4.0); HEMATOCRIT 45.2 % (39.0-51.0); HEMO FLAGS DIFF FINAL; LYMPH % 16.8 % (9.0-44.0); LYMPHOCYTE # 1.6 TH/MM3 (1.0-4.8); MEAN CELL VOLUME 84.8 FL (80.0-100.0); MEAN CORPUSCULAR HEMOGLOBIN 26.8 PG (27.0-34.0); MEAN CORPUSCULAR HGB CONC 31.6 % (32.0-36.0); MONO % 4.4 % (0.0-8.0); NEUT % 70.7 % (16.0-70.0); PLATELET COUNT 327 TH/MM3 (150-450); RED BLOOD COUNT 5.32 MIL/MM3 (4.50-5.90); RED CELL DISTRIBUTION WIDTH 13.4 % (11.6-17.2); WHITE BLOOD COUNT 9.8 TH/MM3 (4.0-11.0)
[2016-10-21 12:27] LABS: APTT (PATIENT) 26.1 SEC (24.3-30.1); INTERNATIONAL NORMALIZED RATIO 0.9 RATIO; PROTHROMBIN TIME - PATIENT 10.1 SEC (9.8-11.6)
[2016-10-21 12:31] LABS: ANION GAP 7 MEQ/L (5-15); BICARBONATE 27.3 MEQ/L (21.0-32.0); BLOOD UREA NITROGEN 11 MG/DL (7-18); CHLORIDE 108 MEQ/L (98-107); GLOMERULAR FILTRATION RATE 104 ML/MIN (>89); MAGNESIUM 2.4 MG/DL (1.5-2.5); POTASSIUM 3.9 MEQ/L (3.5-5.1); SODIUM (NA) 142 MEQ/L (136-145)
--- NOTE | 2016-10-21 12:36 | RADRPT ---
EXAM DATE/TIME: 10/21/2016 12:16 [facility] COMPARISON: CHEST SINGLE AP, September 13, 2016, 9:52. INDICATIONS : Shortness of breath. MEDICAL HISTORY : Chronic obstructive pulmonary disease. SURGICAL HISTORY : None. ENCOUNTER: Initial ACUITY: 1 day PAIN SCORE: 0/10 LOCATION: Bilateral chest FINDINGS: A single view of the chest demonstrates the lungs to be symmetrically aerated without evidence of mas s, infiltrate or effusion. The cardiomediastinal contours are unremarkable. Osseous structures are intact. CONCLUSION: No acute disease. Jarad Mishra MD FACR on October 21, 2016 at 12:34 Board Certified Radiologist. This report was verified electronically.
[2016-10-21 12:38] LABS: CREATINE KINASE 84 U/L (39-308)
[2016-10-21] MEDS ORDERED: AZITHROMYCIN INJ 500 MG in SODIUM CHLOR 0.9% 250 ML INJ 250 ML IV ONE (13:15)
--- NOTE | 2016-10-21 13:53 | HHI.HP ---
HPI Service Family Medicine Primary Care Physician No Primary Care Physician Admission Diagnosis COPD exacerbation Diagnoses: International Travel<30 Days: No Contact w/Intl Traveler<30days: No Known Affected Area: No History of Present Illness 51 y/o M, hx of COPD with multiple visits to ED for exacerbations, presents with shortness of breath over the last 2 days. His SOB has progressively worsened until this AM when his difficulty breathing became so severe he felt he needed to come to the hospital. He felt like he had to work very hard to breath - this felt similar to his previous COPD exacerbations this year. Pt denies any chest pain or dizzyness during the last few days. He does not have insurance and gets his medications prescribed through ED visits; last ED visit was 1 month ago and he sent with prednisone 50daily x 5 days, nebulizer treatments, and albuterol rescue inhaler. Pt states he was outside a lot yesterday and he thinks that contributed to his exacerbation. He does sometimes have triggers for exacerbations; heat/perfumes/different chemicals. Pt does not have a PCP and he has been referred to the [facility] before. He has been out of his nebulizer refills for the last week. Denies any fever/chills. Denies productive cough or rinorrhea. Denies CP/SOB/dizziness. (Yuliya Cartagena MD R2) Review of Systems Constitutional: DENIES: Fatigue, Fever Endocrine: DENIES: Polyuria, Polyphagia Eyes: DENIES: Diplopia, Eye inflammation Ears, nose, mouth, throat: DENIES: Tinnitus, Hearing loss Respiratory: DENIES: Hemoptysis, Sputum production Cardiovascular: DENIES: Palpitations, Syncope Gastrointestinal: DENIES: Abdominal pain, Black stools Genitourinary: DENIES: Urinary incontinence, Urgency Musculoskeletal: DENIES: Muscle aches, Stiffness Integumentary: DENIES: Pruritus, Rash Hematologic/lymphatic: DENIES: Bruising, Lymphadenopathy Immunologic/allergic: DENIES: Eczema Neurologic: DENIES: Headache, Localized weakness Psychiatric: DENIES: Depression, Hallucinations (Yuliya Cartagena MD R2) Past Family Social History Past Medical History COPD diagnoses in 2009 with hospitalizations monthly (per pt) Past Surgical History none (Yuliya Cartagena MD R2) Allergies: Coded Allergies: No Known Allergies (Unverified , 01/10/16) Family History none Social History smoked 2-3packs/day x 15 years , denies alcohol, denies other drug use Social: has lived in hotel for 5 years in [facility] Work: [employer] (Yuliya Cartagena MD R2) Physical Exam Vital Signs Vital Signs Date Time Temp Pulse Resp B/P (MAP) Pulse Ox O2 Delivery O2 Flow Rate FiO2 10/21/16 11:56 97 Nasal Cannula 3.00 10/21/16 11:54 Nasal Cannula 2.00 10/21/16 11:54 99 10/21/16 11:43 98.9 115 32 148/91 (110) 86 Physical Exam GENERAL: This is a well-nourished, well-developed patient, in no apparent distress. SKIN: No rashes, ecchymoses or lesions. Cool and dry. HEAD: Atraumatic. Normocephalic. No temporal or scalp tenderness. EYES: Pupils equal round and reactive. Extraocular motions intact. No scleral icterus. No injection or drainage. ENT: Nose without bleeding, purulent drainage or septal hematoma. Throat without erythema, tonsillar hypertrophy or exudate. Uvula midline. Airway patent. NECK: Trachea midline. No JVD or lymphadenopathy. Supple, nontender, no meningeal signs. CARDIOVASCULAR: Regular rate and rhythm without murmurs, gallops, or rubs. RESPIRATORY: + Wheezing and rhonchi bilaterally, equal bilaterally GASTROINTESTINAL: Abdomen soft, non-tender, nondistended. No hepato-splenomegaly , or palpable masses. No guarding. MUSCULOSKELETAL: Extremities without clubbing, cyanosis, or edema. No joint tenderness, effusion, or edema noted. No calf tenderness. Negative Homans sign bilaterally. NEUROLOGICAL: Awake and alert. Cranial nerves II through XII intact. Motor and sensory grossly within normal limits. Five out of 5 muscle strength in all muscle groups. Normal speech. Laboratory Laboratory Tests Test 10/21/16 11:58 White Blood Count 9.8 Red Blood Count 5.32 Hemoglobin 14.3 Hematocrit 45.2 Mean Corpuscular Volume 84.8 Mean Corpuscular Hemoglobin 26.8 Mean Corpuscular Hemoglobin Concent 31.6 Red Cell Distribution Width 13.4 Platelet Count 327 Mean Platelet Volume 8.8 Neutrophils (%) (Auto) 70.7 Lymphocytes (%) (Auto) 16.8 Monocytes (%) (Auto) 4.4 Eosinophils (%) (Auto) 7.5 Basophils (%) (Auto) 0.6 Neutrophils # (Auto) 6.9 Lymphocytes # (Auto) 1.6 Monocytes # (Auto) 0.4 Eosinophils # (Auto) 0.7 Basophils # (Auto) 0.1 CBC Comment DIFF FINAL Differential Comment Prothrombin Time 10.1 Prothromb Time International Ratio 0.9 Activated Partial Thromboplast Time 26.1 D-Dimer Quantitative (PE/DVT) 0.35 Blood Urea Nitrogen 11 Creatinine 0.79 Random Glucose 120 Calcium Level 8.9 Magnesium Level 2.4 Sodium Level 142 Potassium Level 3.9 Chloride Level 108 Carbon Dioxide Level 27.3 Anion Gap 7 Estimat Glomerular Filtration Rate 104 Total Creatine Kinase 84 Troponin I LESS THAN 0.02 Date/Time Source Procedure Growth Status 10/21/16 13:05 Blood Peripheral Aerobic Blood Culture Pending Received 10/21/16 13:05 Blood Peripheral Anaerobic Blood Culture Pending Received (Yuliya Cartagena MD R2) Result Diagram: 10/21/16 1158 10/21/16 1158 Caprini VTE Risk Assessment Caprini VTE Risk Assessment: No/Low Risk (score <= 1) Caprini Risk Assessment Model Point Value = 1 Point Value = 2 Point Value = 3 Point Value = 5 Age 41-60 Minor surgery BMI > 25 kg/m2 Swollen legs Varicose veins or History of unexplained or recurrent spontaneous Oral contraceptives or hormone replacement Sepsis (< 1 month) Serious lung disease, including pneumonia (< 1 month) Abnormal pulmonary function Acute myocardial infarction Congestive heart failure (< 1 month) History of inflammatory bowel disease Medical patient at bed rest Age 61-74 Arthroscopic surgery Major open surgery (> 45 min) Laparoscopic surgery (> 45 min) Malignancy Confined to bed (> 72 hours) Immobilizing plaster cast Central venous access Age >= 75 History of VTE Family history of VTE Factor V Leiden Prothrombin [id number] Lupus anticoagulant Anticardiolipin antibodies Elevated serum homocysteine Heparin-induced thrombocytopenia Other congenital or acquired thrombophilia Stroke (< 1 month) Elective arthroplasty Hip, pelvis, or leg fracture Acute spinal cord injury (< 1 month) Prophylaxis Regimen Total Risk Factor Score Risk Level Prophylaxis Regimen 0-1 Low Early ambulation 2 Moderate Order ONE of the following: *Sequential Compression Device (SCD) *Heparin 5000 units SQ BID 3-4 Higher Order ONE of the following medications: *Heparin 5000 units SQ TID *Enoxaparin/Lovenox 40 mg SQ daily (WT < 150 kg, CrCl > 30 mL/min) *Enoxaparin/Lovenox 30 mg SQ daily (WT < 150 kg, CrCl > 10-29 mL/min) *Enoxaparin/Lovenox 30 mg SQ BID (WT < 150 kg, CrCl > 30 mL/min) AND/OR *Sequential Compression Device (SCD) 5 or more Highest Order ONE of the following medications: *Heparin 5000 units SQ TID (Preferred with Epidurals) *Enoxaparin/Lovenox 40 mg SQ daily (WT < 150 kg, CrCl > 30 mL/min) *Enoxaparin/Lovenox 30 mg SQ daily (WT < 150 kg, CrCl > 10-29 mL/min) *Enoxaparin/Lovenox 30 mg SQ BID (WT < 150 kg, CrCl > 30 mL/min) AND *Sequential Compression Device (SCD) (Yuliya Cartagena MD R2) Assessment and Plan Assessment and Plan 51 y/o M presenting with acute COPD exacerbation Code Status full code Discussed Condition With Dr.Harris Montaño (Yuliya Cartagena MD R2) Attending Attestation Patient seen and examined. Case reviewed and discussed with the resident team. Agree with plan of care as discussed with me and documented in the resident note. he is improved after treatment in the ED (Diana Garcia MD) Problem List: (1) COPD exacerbation ICD Codes: J44.1 - Chronic obstructive pulmonary disease with (acute) exacerbation Status: Acute Plan: Pt has gone to ED for multiple COPD exacerbations this year. He is likely in the severe COPD (stage III) category pt greatly imroved after following rx: - s/p Salumedrol 125mg IVP in ED - s/p Azithromycin 500mg IV x1 - s/p Nebulixer rx x 3 We will cover for CAP - Azithromycin 500 q24 + Rocephin 1g IV q24 Plan before d/c - reassess with PFTs, walk test - d/c with better long-term COPD medication (2) fen/ppx Status: Acute Plan: Fluids: Maintenance Electrolytes: BMP WNL Nutrition: reg diet DVT ppx: heparin 5000 TID (Yuliya Cartagena MD R2) Physician Certification 2 Midnight Certification Type: Admission for Inpatient Services Order for Inpatient Services The services are ordered in accordance with Medicare regulations or non- Medicare payer requirements, as applicable. In the case of services not specified as inpatient-only, they are appropriately provided as inpatient services in accordance with the 2-midnight benchmark. Estimated LOS (days): 2 days is the estimated time the patient will need to remain in the hospital, assuming treatment plan goals are met and no additional complications. Post-Hospital Plan: Home (Yuliya Cartagena MD R2) Yuliya Cartagena MD R2 Oct 21, 2016 13:53 Diana Garcia MD Oct 22, 2016 13:26
[2016-10-21] MEDS ORDERED: SODIUM CHLORIDE 0.9% FLUSH 10 ML FLUSH IV FLUSH PRN (14:00)
[2016-10-21] MEDS: cefTRIAXone INJ 1,000 MG in SODIUM CHLORIDE 0.9% INJ 100 ML IV SCH (15:13)
[2016-10-21] MEDS: HEPARIN SODIUM - SQ 10,000 UNITS/ML VIAL SQ SCH ×2 (15:13→23:37)
--- NOTE | 2016-10-21 17:17 | EKG ---
Date Performed: 10/21/2016 Time Performed: 11:55:51 PTAGE: 51 years EKG: SINUS TACHYCARDIA Since previous tracing, no significant change noted ABNORMAL RHYTHM ECG PREVIOUS TRACING : 03/20/2016 23.45.23 DOCTOR: Richa Casillas Interpretating Date/Time 10/21/2016 17:16:17
[2016-10-21 18:00] VITALS: BP 148/82; PULSE 102; RESP 18; TEMP 96.6; O2SAT 96
[2016-10-21 21:16] VITALS: O2SAT 96
[2016-10-21] MEDS: SODIUM CHLORIDE 0.9% FLUSH 10 ML FLUSH IV FLUSH SCH (23:38)
[2016-10-21] MEDS: SODIUM CHLOR 0.9% 1000 ML INJ 1,000 ML IV SCH (23:38)
[2016-10-22 00:20] VITALS: BP 142/80; PULSE 102; RESP 18; TEMP 98.4; O2SAT 96
[2016-10-22 03:50] VITALS: BP 147/77; PULSE 86; RESP 17; TEMP 97; O2SAT 99
[2016-10-22] MEDS: RESP: ALBUTEROL 2.5 MG/IPRATROPIUM 0.5 MG NEB (SCH) INH ×4 (04:27→17:04)
[2016-10-22] MEDS: SODIUM CHLOR 0.9% 1000 ML INJ 1,000 ML IV SCH ×2 (04:45→14:27)
[2016-10-22 06:53] LABS: AUTOMATED NEUTROPHIL # 11.2 TH/MM3 (1.8-7.7); BASOPHIL % 0.2 % (0.0-2.0); HEMATOCRIT 40.2 % (39.0-51.0); HEMO FLAGS DIFF FINAL; LYMPH % 13.1 % (9.0-44.0); LYMPHOCYTE # 1.8 TH/MM3 (1.0-4.8); MEAN CELL VOLUME 85.3 FL (80.0-100.0); MEAN CORPUSCULAR HEMOGLOBIN 27.6 PG (27.0-34.0); MEAN CORPUSCULAR HGB CONC 32.3 % (32.0-36.0); MONO % 5.7 % (0.0-8.0); PLATELET COUNT 284 TH/MM3 (150-450); RED BLOOD COUNT 4.71 MIL/MM3 (4.50-5.90); RED CELL DISTRIBUTION WIDTH 13.3 % (11.6-17.2); WHITE BLOOD COUNT 13.8 TH/MM3 (4.0-11.0)
[2016-10-22 07:15] LABS: BICARBONATE 26.1 MEQ/L (21.0-32.0); POTASSIUM 3.7 MEQ/L (3.5-5.1)
[2016-10-22] MEDS: HEPARIN SODIUM - SQ 10,000 UNITS/ML VIAL SQ SCH ×2 (07:51→14:26)
[2016-10-22 08:00] VITALS: BP 128/78; PULSE 73; RESP 20; TEMP 98; O2SAT 97
[2016-10-22] MEDS: SODIUM CHLORIDE 0.9% FLUSH 10 ML FLUSH IV FLUSH SCH (08:37)
[2016-10-22 09:00] VITALS: O2SAT 97
[2016-10-22] MEDS ORDERED: predniSONE 20 MG TAB PO SCH (09:00)
[2016-10-22] MEDS ORDERED: FLUTICASONE PROPIONATE 220 MCG/ACT 12 GM INHALER INH SCH (09:00)
--- NOTE | 2016-10-22 09:27 | HHI.HP ---
[facility] Service Family Medicine Primary Care Physician No Primary Care Physician Admission Diagnosis COPD exacerbation Diagnoses: (1) COPD exacerbation Diagnosis: Principal (2) fen/ppx Diagnosis: Principal International Travel<30 Days: No Contact w/Intl Traveler<30days: No Known Affected Area: No History of Present Illness Mr Lawson is a 51 y/o M, hx of COPD with multiple visits to ED for exacerbations, presented with shortness of breath over the last 2 daysprior to admission. His SOB has progressively worsened until his difficulty breathing became so severe he felt he needed to come to the hospital. He felt like he had to work very hard to breath - this felt similar to his previous COPD exacerbations this year. Pt denies any chest pain or dizziness during the last few days. He does not have insurance and gets his medications prescribed through ED visits as he had medicaid but lost it recently; last ED visit was 1 month ago and he sent with prednisone 50daily x 5 days, nebulizer treatments, and albuterol rescue inhaler. Pt states he was outside a lot yesterday and he thinks that contributed to his exacerbation. He does sometimes have triggers for exacerbations; heat/perfumes/different chemicals. Pt does not have a PCP and he has been referred to the [facility] before. He has been out of his nebulizer refills for the last week. Denies any fever/chills. Denies productive cough or rhinorrhea. Denies CP/SOB/dizziness. This am he reports feeling back to baseline. He is doing well with his O2 sats on 2 liters and will have a walk test today. He is still having some wheezing on exam but states he feels back to normal. Review of Systems Other Constitutional: DENIES: Fatigue, Fever Endocrine: DENIES: Polyuria, Polyphagia Eyes: DENIES: Diplopia, Eye inflammation Ears, nose, mouth, throat: DENIES: Tinnitus, Hearing loss Respiratory: DENIES: Hemoptysis, Sputum production Cardiovascular: DENIES: Palpitations, Syncope Gastrointestinal: DENIES: Abdominal pain, Black stools Genitourinary: DENIES: Urinary incontinence, Urgency Musculoskeletal: DENIES: Muscle aches, Stiffness Integumentary: DENIES: Pruritus, Rash Hematologic/lymphatic: DENIES: Bruising, Lymphadenopathy Immunologic/allergic: DENIES: Eczema Neurologic: DENIES: Headache, Localized weakness Psychiatric: DENIES: Depression, Hallucinations Past Family Social History Past Medical History COPD diagnoses in 2009 with hospitalizations monthly (per pt) Past Surgical History none Allergies: Coded Allergies: No Known Allergies (Unverified , 01/10/16) Family History none Social History smoked 2-3packs/day x 15 years , denies alcohol, denies other drug use Social: has lived in hotel for 5 years in [place] 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 he is very comfortable at rest SKIN: No rashes, ecchymoses or lesions. Cool and dry. HEAD: Atraumatic. Normocephalic. EYES: Pupils equal round and reactive. Extraocular motions intact. No scleral icterus. No injection or drainage. ENT: Nose without bleeding, purulent drainage or septal hematoma. Airway patent. NECK: Trachea midline. No JVD or lymphadenopathy. Supple, nontender, no meningeal signs. CARDIOVASCULAR: Regular rate and rhythm without murmurs, gallops, or rubs. RESPIRATORY: + Wheezing bilaterally throughout GASTROINTESTINAL: Abdomen soft, non-tender, nondistended. No hepato-splenomegaly , or palpable masses. No guarding. MUSCULOSKELETAL: Extremities without clubbing, cyanosis, or edema. No joint tenderness, effusion, or edema noted. No calf tenderness. Negative Homans sign bilaterally. NEUROLOGICAL: Awake and alert. Cranial nerves II through XII intact. Motor and sensory grossly within normal limits. Five out of 5 muscle strength in all muscle groups. Normal speech. Laboratory Laboratory Tests Test 10/21/16 11:58 10/22/16 06:03 White Blood Count 9.8 13.8 Red Blood Count 5.32 4.71 Hemoglobin 14.3 13.0 Hematocrit 45.2 40.2 Mean Corpuscular Volume 84.8 85.3 Mean Corpuscular Hemoglobin 26.8 27.6 Mean Corpuscular Hemoglobin Concent 31.6 32.3 Red Cell Distribution Width 13.4 13.3 Platelet Count 327 284 Mean Platelet Volume 8.8 9.2 Neutrophils (%) (Auto) 70.7 81.0 Lymphocytes (%) (Auto) 16.8 13.1 Monocytes (%) (Auto) 4.4 5.7 Eosinophils (%) (Auto) 7.5 0.0 Basophils (%) (Auto) 0.6 0.2 Neutrophils # (Auto) 6.9 11.2 Lymphocytes # (Auto) 1.6 1.8 Monocytes # (Auto) 0.4 0.8 Eosinophils # (Auto) 0.7 0.0 Basophils # (Auto) 0.1 0.0 CBC Comment DIFF FINAL DIFF FINAL Differential Comment Prothrombin Time 10.1 Prothromb Time International Ratio 0.9 Activated Partial Thromboplast Time 26.1 D-Dimer Quantitative (PE/DVT) 0.35 Blood Urea Nitrogen 11 9 Creatinine 0.79 0.78 Random Glucose 120 120 Calcium Level 8.9 7.8 Magnesium Level 2.4 Sodium Level 142 140 Potassium Level 3.9 3.7 Chloride Level 108 105 Carbon Dioxide Level 27.3 26.1 Anion Gap 7 9 Estimat Glomerular Filtration Rate 104 106 Total Creatine Kinase 84 Troponin I LESS THAN 0.02 B-Type Natriuretic Peptide 18 Date/Time Source Procedure Growth Status 10/21/16 13:05 Blood Peripheral Aerobic Blood Culture Pending Received 10/21/16 13:05 Blood Peripheral Anaerobic Blood Culture Pending Received Result Diagram: 10/22/1660210/22/16602 Caprini VTE Risk Assessment Caprini VTE Risk Assessment: No/Low Risk (score <= 1) Caprini Risk Assessment Model Point Value = 1 Point Value = 2 Point Value = 3 Point Value = 5 Age 41-60 Minor surgery BMI > 25 kg/m2 Swollen legs Varicose veins or History of unexplained or recurrent spontaneous Oral contraceptives or hormone replacement Sepsis (< 1 month) Serious lung disease, including pneumonia (< 1 month) Abnormal pulmonary function Acute myocardial infarction Congestive heart failure (< 1 month) History of inflammatory bowel disease Medical patient at bed rest Age 61-74 Arthroscopic surgery Major open surgery (> 45 min) Laparoscopic surgery (> 45 min) Malignancy Confined to bed (> 72 hours) Immobilizing plaster cast Central venous access Age >= 75 History of VTE Family history of VTE Factor V Leiden Prothrombin [id number] Lupus anticoagulant Anticardiolipin antibodies Elevated serum homocysteine Heparin-induced thrombocytopenia Other congenital or acquired thrombophilia Stroke (< 1 month) Elective arthroplasty Hip, pelvis, or leg fracture Acute spinal cord injury (< 1 month) Prophylaxis Regimen Total Risk Factor Score Risk Level Prophylaxis Regimen 0-1 Low Early ambulation 2 Moderate Order ONE of the following: *Sequential Compression Device (SCD) *Heparin 5000 units SQ BID 3-4 Higher Order ONE of the following medications: *Heparin 5000 units SQ TID *Enoxaparin/Lovenox 40 mg SQ daily (WT < 150 kg, CrCl > 30 mL/min) *Enoxaparin/Lovenox 30 mg SQ daily (WT < 150 kg, CrCl > 10-29 mL/min) *Enoxaparin/Lovenox 30 mg SQ BID (WT < 150 kg, CrCl > 30 mL/min) AND/OR *Sequential Compression Device (SCD) 5 or more Highest Order ONE of the following medications: *Heparin 5000 units SQ TID (Preferred with Epidurals) *Enoxaparin/Lovenox 40 mg SQ daily (WT < 150 kg, CrCl > 30 mL/min) *Enoxaparin/Lovenox 30 mg SQ daily (WT < 150 kg, CrCl > 10-29 mL/min) *Enoxaparin/Lovenox 30 mg SQ BID (WT < 150 kg, CrCl > 30 mL/min) AND *Sequential Compression Device (SCD) Assessment and Plan Assessment and Plan 51 y/o M presenting with acute COPD exacerbation will see if he is doing well and is ready to go home later today. he is still wheezing but may wheeze chronically. he knows he needs his inhalers, nebulized solutions but has had trouble getting these recently Problem List: (1) COPD exacerbation ICD Codes: J44.1 - Chronic obstructive pulmonary disease with (acute) exacerbation Status: Acute Plan: Pt has gone to ED for multiple COPD exacerbations this year. He is likely in the severe COPD (stage III) category vs he has poor access to meds pt greatly imroved after following rx: - s/p Solumedrol 125mg IVP in ED. he reports he gets marked improvement after steroids - s/p Azithromycin 500mg IV x1 - s/p Nebulixer rx x 3 We will cover for CAP - Azithromycin 500 q24 + Rocephin 1g IV q24 Plan before d/c - reassess with PFTs, walk test - d/c with better long-term COPD medication he has medicaid and can ask case mgt for help to see if he still qualifies. he said he tried to recertify but is unsure if the papers got lost, etc. (2) fen/ppx Status: Acute Plan: Fluids: Maintenance Electrolytes: BMP WNL Nutrition: reg diet DVT ppx: heparin 5000 TID Physician Certification 2 Midnight Certification Type: Admission for Inpatient Services Order for Inpatient Services The services are ordered in accordance with Medicare regulations or non- Medicare payer requirements, as applicable. In the case of services not specified as inpatient-only, they are appropriately provided as inpatient services in accordance with the 2-midnight benchmark. Estimated LOS (days): 3 3 days is the estimated time the patient will need to remain in the hospital, assuming treatment plan goals are met and no additional complications. Post-Hospital Plan: Home Notes: if he improves faster than expected he may be able to go home sooner Diana Garcia MD Oct 22, 2016 09:27
[2016-10-22 12:00] VITALS: BP 128/74; PULSE 91; RESP 20; TEMP 97.3; O2SAT 95
[2016-10-22] MEDS ORDERED: AZITHROMYCIN INJ 500 MG in SODIUM CHLOR 0.9% 250 ML INJ 250 ML IV SCH (14:00)
[2016-10-22] MEDS: cefTRIAXone INJ 1,000 MG in SODIUM CHLORIDE 0.9% INJ 100 ML IV SCH (15:00)
[2016-10-22] MEDS ORDERED: LEVA500T20 PO (16:40)
[2016-10-22] MEDS ORDERED: FLUTI220I INH (16:40)
[2016-10-22] MEDS ORDERED: PRED20 PO (16:40)
[2016-10-22] MEDS ORDERED: IPRA0.02 NEB (16:40)
[2016-10-22] MEDS ORDERED: ALBU0.08 NEB (16:40)
--- NOTE | 2016-10-22 16:41 | HHI.DCPOC ---
Discharge Care Plan Diagnosis: (1) COPD exacerbation (2) Hypoxia Goals to Promote Your Health * To prevent worsening of your condition and complications * To maintain your health at the optimal level Directions to Meet Your Goals Take your medications as prescribed Follow your dietary instruction Follow activity as directed Keep your appointments as scheduled Take your immunizations and boosters as scheduled If your symptoms worsen call your PCP, if no PCP go to Urgent Care Center or Emergency Room Smoking is Dangerous to Your Health. Avoid second hand smoke Call the 24-hour hour crisis hotline for domestic abuse at Rudolph Ye MD R2 Oct 22, 2016 16:41
--- NOTE | 2016-10-22 17:01 | HHI.PR ---
Addendum to Inpatient Note Addendum Reason: Additional Documentation Additional Information Medical team notified patient passed home o2 walk test with physical therapy this afternoon. Patient given option to continue therapy with observation overnight or be discharged home with prescriptions. Patient has elected to be discharged home with prescriptions for Flovent, Ipratropium nebs, Albuterol nebs , Prednisone for 5 more days, and Levaquin for a total of 7 days of antibiotic coverage. He was also recommended to follow up with his PCP in 1 week. Rudolph Ye MD R2 Oct 22, 2016 17:01
== END 2016-10-22 19:37 | disposition home or self-care (01) | DRG 192 ==
LOC: NEPE 11:41 → NEDA 13:24 → N06B 18:05
PROVIDERS: ADMIT Family Medicine; ATTEND Family Medicine
DX: J44.1 Chronic obstructive pulmonary disease with (acute) exacerbation (principal); R00.0 Tachycardia, unspecified; R09.02 Hypoxemia; Z79.51 Long term (current) use of inhaled steroids; Z87.891 Personal history of nicotine dependence
CPT/HCPCS: 71010; 80048; 82550; 83735; 83880; 84484; 85025; 85379; 85610; 85730; 87040; 93005; 94150; 94640; 94664; 96361; 96365; 96367; 96372; 96375; 96376; G0378; J0456; J0696; J1644; J2930; J7030; J7050; J7512

== ENCOUNTER 2016-10-30 03:19 | Observation (INO) | payer MEDICAID ==
[2016-10-30] VITALS (9 sets, daily range): BP systolic 135–173; BP diastolic 80–89; PULSE 94–129; RESP 16–28; TEMP 98.6–99.3; O2SAT 94–98
[~2016-10-30 03:19] MED LIST changes: -ALBU.5I NEB; +ALBU0.08 NEB; -ALBU0.63 NEB; +IPRA0.02 NEB; -IPRA17I INH; +LEVA500T20 PO; -VENTAER INH
[2016-10-30] MEDS ORDERED: IBUPROFEN 600 MG TAB PO ONE (03:45)
[2016-10-30] MEDS ORDERED: SODIUM CHLOR 0.9% 1000 ML INJ 1,000 ML IV ONE ×2 (03:45→04:45)
[2016-10-30] MEDS ORDERED: methylPREDNISolone SOD SUCC 125 MG/2 ML VIAL IVP ONE (03:45)
--- NOTE | 2016-10-30 03:46 | PD ---
HPI Chief Complaint: Respiratory Distress Time Seen by Provider: 03:29 Travel History International Travel<30 days: No Contact w/Intl Traveler<30days: No Traveled to known affect area: No History of Present Illness HPI 51 y/o male presents with shortness of breath and nasal congestion since yesterday. he denies other specfic complaints. he feels worse when he moves around. he denies other concerns. he notes he was recently in the hospital for his copd. he tried a nebulizer but was feeling worse so elected to come in. he denies other modifying factors. quality is short of breath. severity is progressive. PFSH Past Medical History Autoimmune Disease: No Cardiovascular Problems: No COPD: Yes Diabetes: No Diminished Hearing: No Endocrine: No Genitourinary: No Immune Disorder: No Musculoskeletal: No Neurologic: No Psychiatric: No Reproductive: No Respiratory: Yes Social History Alcohol Use: Yes (RARELY) Tobacco Use: No Substance Use: No Allergies-Medications (Allergen,Severity, Reaction): Coded Allergies: No Known Allergies (Unverified , 10/30/16) Reported Meds & Prescriptions Reported Meds & Active Scripts Active Albuterol Neb (Albuterol Sulfate) 2.5 Mg/3 Ml Neb 2.5 Mg NEB QID NEB PRN Ipratropium Neb (Ipratropium [place]) 0.5 Mg/2.5 Ml Amp 0.5 Mg NEB Q6HR NEB Flovent Hfa 12 GM Inh (Fluticasone Propionate) 220 Mcg/Act Inh 2 Puff INH BID Use daily at the same time. Review of Systems Except as stated in HPI: all other systems reviewed are Neg Physical Exam Narrative GENERAL: Well-nourished, well-developed patient. SKIN: Warm and dry. HEAD: Normocephalic and atraumatic. EYES: No injection or drainage. ENT: No nasal drainage noted. NECK: Supple, trachea midline. CARDIOVASCULAR: tachycardic rate and regular rhythm RESPIRATORY: expiratory wheezing bilaterally. No accessory muscle use. GASTROINTESTINAL: Abdomen soft, non-tender, nondistended. EXTREMITIES: No edema. NEUROLOGICAL: Awake and alert. Motor and sensory grossly within normal limits. Normal speech. Data Data Last Documented VS Vital Signs Date Time Temp Pulse Resp B/P (MAP) Pulse Ox O2 Delivery O2 Flow Rate FiO2 10/30/16 04:45 98.6 10/30/16 03:53 110 18 98 Aerosol Mask 2.00 Orders Orders Electrocardiogram (10/30/16 03:35) Complete Blood Count With Diff (10/30/16 03:35) Comprehensive Metabolic Panel (10/30/16 03:35) Prothrombin Time / Inr (Pt) (10/30/16 03:35) Act Partial Throm Time (Ptt) (10/30/16 03:35) Lactic Acid Sepsis Protocol (10/30/16 03:35) Magnesium (Mg) (10/30/16 03:35) Phosphorus (Po4) (10/30/16 03:35) Ckmb (Isoenzyme) Profile (10/30/16 03:35) Troponin I (10/30/16 03:35) Urinalysis - C+S If Indicated (10/30/16 03:35) Influenzae A/B Antigen (10/30/16 03:35) Blood Culture (10/30/16 03:35) Chest, Single Ap (10/30/16 03:35) Ecg Monitoring (10/30/16 03:35) Iv Access Insert/Monitor (10/30/16 03:35) Oximetry (10/30/16 03:35) Ibuprofen (Motrin) (10/30/16 03:45) Methylprednisolone So Succ Inj (Solumedr (10/30/16 03:45) Albuterol-Ipratropium Neb (Duoneb Neb) (10/30/16 03:45) Sodium Chlor 0.9% 1000 Ml Inj (Ns 1000 M (10/30/16 03:45) Ceftriaxone Inj (Rocephin Inj) (10/30/16 04:08) Azithromycin Inj (Zithromax Inj) (10/30/16 04:08) Sodium Chlor 0.9% 1000 Ml Inj (Ns 1000 M (10/30/16 04:45) Admit Order (Ed Use Only) (10/30/16 05:00) Labs Laboratory Tests Test 10/30/16 03:40 White Blood Count 17.4 TH/MM3 Red Blood Count 5.54 MIL/MM3 Hemoglobin 15.2 GM/DL Hematocrit 47.0 % Mean Corpuscular Volume 84.8 FL Mean Corpuscular Hemoglobin 27.4 PG Mean Corpuscular Hemoglobin Concent 32.3 % Red Cell Distribution Width 13.6 % Platelet Count 331 TH/MM3 Mean Platelet Volume 8.3 FL Neutrophils (%) (Auto) 73.5 % Lymphocytes (%) (Auto) 14.7 % Monocytes (%) (Auto) 6.9 % Eosinophils (%) (Auto) 4.5 % Basophils (%) (Auto) 0.4 % Neutrophils # (Auto) 12.7 TH/MM3 Lymphocytes # (Auto) 2.6 TH/MM3 Monocytes # (Auto) 1.2 TH/MM3 Eosinophils # (Auto) 0.8 TH/MM3 Basophils # (Auto) 0.1 TH/MM3 CBC Comment DIFF FINAL Differential Comment Prothrombin Time 9.7 SEC Prothromb Time International Ratio 0.9 RATIO Activated Partial Thromboplast Time 25.4 SEC Blood Urea Nitrogen 15 MG/DL Creatinine 1.00 MG/DL Random Glucose 113 MG/DL Total Protein 7.4 GM/DL Albumin 3.6 GM/DL Calcium Level 8.9 MG/DL Phosphorus Level 4.2 MG/DL Magnesium Level 2.2 MG/DL Alkaline Phosphatase 106 U/L Aspartate Amino Transf (AST/SGOT) 16 U/L Alanine Aminotransferase (ALT/SGPT) 45 U/L Total Bilirubin 0.2 MG/DL Sodium Level 138 MEQ/L Potassium Level 3.8 MEQ/L Chloride Level 103 MEQ/L Carbon Dioxide Level 26.5 MEQ/L Anion Gap 9 MEQ/L Estimat Glomerular Filtration Rate 79 ML/MIN Lactic Acid Level 1.6 mmol/L Total Creatine Kinase 90 U/L Troponin I LESS THAN 0.02 NG/ML MDM Medical Decision Making Medical Screen Exam Complete: Yes Emergency Medical Condition: Yes Medical Record Reviewed: Yes (pmh confirmed, recent hospitalization reviewed) Interpretation(s) CBC & BMP Diagram 10/30/16 03:40 Total Protein 7.4, Albumin 3.6, Calcium Level 8.9, Phosphorus Level 4.2, Magnesium Level 2.2, Alkaline Phosphatase 106, Aspartate Amino Transf (AST/SGOT ) 16, Alanine Aminotransferase (ALT/SGPT) 45, Total Bilirubin 0.2 Last 24 hours Impressions Chest X-Ray 10/30/16 0332 Signed Impressions: Service Date/Time: Sunday, October 30, 2016 03:53 - CONCLUSION: 1. No acute cardiopulmonary disease. Gomez Chaudhary MD Differential Diagnosis copd, pneumonia, uri, sepsis, renal failure, pneumothorax.... Narrative Course will check labs, cxr and dose with solumedrol, motrin, ivf, duonebs and reeval ed workup with signs concerning for sepsis, lactate is normal and no hypotension , given rocephin and azithromycin, patient will be admitted for further care Sepsis Criteria SIRS Criteria (2 or more): Heart rate over 90, WBC > 07742, < 4000 or > 10% bands Sepsis Criteria (SIRS+source): Infect source susp/known Physician Communication Physician Communication dr baires agrees to admit Diagnosis Primary Impression: COPD exacerbation Additional Impression: Sepsis Qualified Codes: A41.9 - Sepsis, unspecified organism Admitting Information Admitting Physician Requests: Observation Seema Bernal MD Oct 30, 2016 03:46
[2016-10-30] MEDS: RESP: ALBUTEROL 2.5 MG/IPRATROPIUM 0.5 MG NEB (SCH) INH (03:47)
[2016-10-30 03:58] LABS: AUTOMATED NEUTROPHIL # 12.7 TH/MM3 (1.8-7.7); BASOPHIL # 0.1 TH/MM3 (0-0.2); BASOPHIL % 0.4 % (0.0-2.0); EOSINOPHIL # 0.8 TH/MM3 (0-0.4); EOSINOPHIL % 4.5 % (0.0-4.0); HEMO FLAGS DIFF FINAL; LYMPH % 14.7 % (9.0-44.0); LYMPHOCYTE # 2.6 TH/MM3 (1.0-4.8); MEAN CELL VOLUME 84.8 FL (80.0-100.0); MEAN CORPUSCULAR HEMOGLOBIN 27.4 PG (27.0-34.0); MEAN CORPUSCULAR HGB CONC 32.3 % (32.0-36.0); MONO % 6.9 % (0.0-8.0); NEUT % 73.5 % (16.0-70.0); PLATELET COUNT 331 TH/MM3 (150-450); RED BLOOD COUNT 5.54 MIL/MM3 (4.50-5.90); RED CELL DISTRIBUTION WIDTH 13.6 % (11.6-17.2); WHITE BLOOD COUNT 17.4 TH/MM3 (4.0-11.0)
--- NOTE | 2016-10-30 04:01 | RADRPT ---
EXAM DATE/TIME: 10/30/2016 03:53 [facility] COMPARISON: CHEST SINGLE AP, October 21, 2016, 12:16. INDICATIONS : Shortness of breath and cough. MEDICAL HISTORY : None. SURGICAL HISTORY : None. ENCOUNTER: Initial ACUITY: 1 day PAIN SCORE: 0/10 LOCATION: chest FINDINGS: A single view of the chest demonstrates the lungs to be symmetrically aerated without evidence of mas s, infiltrate or effusion. The cardiomediastinal contours are unremarkable. Osseous structures are intact. CONCLUSION: 1. No acute cardiopulmonary disease. Gomez Chaudhary MD on October 30, 2016 at 4:00 Board Certified Radiologist. This report was verified electronically.
[2016-10-30] MEDS ORDERED: AZITHROMYCIN INJ 500 MG in SODIUM CHLOR 0.9% 250 ML INJ 250 ML IV STA (04:08)
[2016-10-30] MEDS ORDERED: cefTRIAXone INJ 2,000 MG in SODIUM CHLORIDE 0.9% INJ 100 ML IV STA (04:08)
[2016-10-30 04:10] LABS: APTT (PATIENT) 25.4 SEC (24.3-30.1); INTERNATIONAL NORMALIZED RATIO 0.9 RATIO; PROTHROMBIN TIME - PATIENT 9.7 SEC (9.8-11.6)
[2016-10-30 04:20] LABS: ALT (GPT) 45 U/L (12-78); ANION GAP 9 MEQ/L (5-15); AST (GOT) 16 U/L (15-37); BICARBONATE 26.5 MEQ/L (21.0-32.0); BLOOD UREA NITROGEN 15 MG/DL (7-18); CHLORIDE 103 MEQ/L (98-107); GLOMERULAR FILTRATION RATE 79 ML/MIN (>89); MAGNESIUM 2.2 MG/DL (1.5-2.5); POTASSIUM 3.8 MEQ/L (3.5-5.1); SODIUM (NA) 138 MEQ/L (136-145)
[2016-10-30 04:24] LABS: ALKALINE PHOSPHATASE 106 U/L (45-117); TOTAL BILIRUBIN ADULT 0.2 MG/DL (0.2-1.0)
[2016-10-30 04:29] LABS: CREATINE KINASE 90 U/L (39-308)
[2016-10-30] MEDS ORDERED: SODIUM CHLORIDE 0.9% FLUSH 10 ML FLUSH IV FLUSH PRN (05:15)
[2016-10-30] MEDS ORDERED: NALOXONE HCL 0.4 MG/ML AMP IV PRN (05:15)
[2016-10-30 05:52] LABS: BLOOD, URINE MOD (NEG); GLUCOSE,URINE NEG (NEG); KETONE, URINE NEG (NEG); NITRITE,URINE NEG (NEG); PH, URINE 5.5 (5.0-8.5); URINE COLOR LIGHT-YELLOW (YELLW/STRAW)
[2016-10-30] MEDS ORDERED: LEVOFLOXACIN 750 MG PREMIX INJ 150 ML IV SCH (06:00)
[2016-10-30 06:06] LABS: COMMENT (UR) CATH-CULT NOT IND; CULTURE IF INDICATED CATH CULTURE NOT IND
[2016-10-30] MEDS ORDERED: SODIUM CHLORIDE 0.9% FLUSH 10 ML FLUSH IV FLUSH SCH (09:00)
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
[2016-10-30] MEDS ORDERED: predniSONE 50 MG TAB PO ONE (10:45)
--- NOTE | 2016-10-30 11:28 | EKG ---
Date Performed: 10/30/2016 Time Performed: 03:35:18 PTAGE: 51 years EKG: SINUS TACHYCARDIA ABNORMAL RHYTHM ECG PREVIOUS TRACING : 10/21/2016 11.55 No significant change from previous tracing noted. DOCTOR: Bryce Childers Interpretating Date/Time 10/30/2016 11:27:14
[2016-10-30] MEDS ORDERED: PRED20 PO (11:40)
[2016-10-30] MEDS ORDERED: LEVA750T9 PO (11:40)
[2016-10-30] MEDS ORDERED: VENTAER INH (11:41)
[2016-10-30] MEDS ORDERED: SYMB160A INH (11:41)
[2016-10-30] MEDS ORDERED: ALBUTEROL SULFATE 90 MCG/ACT HFA 8 GM INHALER INH PRN (11:45)
[2016-10-30] MEDS ORDERED: BUDESONIDE-FORMOTEROL 160/4.5 MCG INHALER INH SCH (11:45)
[2016-10-31] MEDS ORDERED: predniSONE 20 MG TAB PO SCH (09:00)
== END 2016-10-30 14:16 | disposition home or self-care (01) ==
LOC: NEPC 03:19 → NEDA 05:02 → NEPHCDU 09:04
PROVIDERS: ADMIT Hospitalist; ATTEND Hospitalist
DX: J44.1 Chronic obstructive pulmonary disease with (acute) exacerbation (principal); R94.31 Abnormal electrocardiogram [ECG] [EKG]; A41.9 Sepsis, unspecified organism; Z87.891 Personal history of nicotine dependence
CPT/HCPCS: 71010; 80053; 81001; 82550; 83605; 83735; 84100; 84484; 85025; 85610; 85730; 87040; 87804; 93005; 94640; 94664; 96361; 96365; 96366; 96367; 96375; 99285; G0378; J0456; J0696; J1956; J2930; J7030; J7050; J7512